=== PATIENT | male | born 2000 | race Caucasian/White ===

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

== ENCOUNTER 2021-10-06 15:29 | Emergency (ER) | payer OTHER ==
[2021-10-06 15:48] VITALS: BP 157/97; PULSE 83; RESP 19; TEMP 98.1
--- NOTE | 2021-10-06 17:25 | ED ---
General Adult HPI - General Chief complaint: Urogenital Stated complaint: groin pain Time Seen by Provider: 10/06/21 17:15 Source: patient, RN notes reviewed Mode of arrival: ambulatory Limitations: no limitations - History of Present Illness Initial comments: Patient is a pleasant 21-year-old male presenting to the emergency Department with complaints of left testicle pain. Onset of symptoms was around 1 week ago. Discomfort was somewhat severe the first couple of days and has lessened since that time. Discomfort is only moderate at this time rated 5/10. Discomfort is left testicle. Patient has not noticed any swelling. No redness. No dysuria or hematuria. No abdominal discomfort. No history of similar symptoms previously. Symptoms did start after moving furniture. - Related Data Home Medications Medication Instructions Recorded Confirmed No Known Home Medications 10/06/21 10/06/21 Allergies Allergy/AdvReac Type Severity Reaction Status Date / Time No Known Allergies Allergy Verified 12/26/18 22:52 Review of Systems ROS Statement: Those systems with pertinent positive or pertinent negative responses have been documented in the HPI. ROS Other: All systems not noted in ROS Statement are negative. Constitutional: Denies: fever Eyes: Denies: eye pain ENT: Denies: ear pain Respiratory: Denies: cough Cardiovascular: Denies: chest pain Endocrine: Denies: fatigue Gastrointestinal: Denies: abdominal pain Genitourinary: Reports: as per HPI, testicular pain. Denies: dysuria, hematuria, discharge, testicular mass Musculoskeletal: Denies: back pain Skin: Denies: rash Neurological: Denies: weakness Past Medical History Past Medical History: GERD/Reflux Additional Past Medical History / Comment(s): N/V daily since December,. pain, gas, bloating,steroids within 3 mos History of Any Multi-Drug Resistant Organisms: MRSA Date of last positivie culture/infection: 1998 MDRO Source:: arm Past Surgical History: Adenoidectomy, Tonsillectomy Additional Past Surgical History / Comment(s): circumcision repeated @age of 4,mole removed from scalp Past Anesthesia/Blood Transfusion Reactions: Postoperative Nausea & Vomiting (PONV) Past Psychological History: Anxiety Smoking Status: Never smoker Past Alcohol Use History: None Reported Past Drug Use History: None Reported - Past Family History Mother Family Medical History: No Reported History Father Family Medical History: No Reported History General Exam Limitations: no limitations General appearance: alert, in no apparent distress Head exam: Present: normocephalic Eye exam: Present: normal appearance Neck exam: Present: normal inspection Respiratory exam: Present: normal lung sounds bilaterally Cardiovascular Exam: Present: regular rate, normal rhythm GI/Abdominal exam: Present: soft, normal bowel sounds. Absent: distended, tenderness, guarding, rebound, rigid, pulsatile mass exam: Present: testicular tenderness (Mild in the area of the epididymis). Absent: scrotal swelling Extremities exam: Present: normal inspection Back exam: Present: normal inspection. Absent: tenderness Neurological exam: Present: alert Psychiatric exam: Present: normal affect, normal mood Skin exam: Present: normal color Course Vital Signs 10/06/21 15:45 Temperature 98.1 F Pulse Rate 83 Respiratory 19 Rate Blood Pressure 157/97 O2 Sat by Pulse 98 Oximetry Medical Decision Making - Medical Decision Making Patient reevaluated and resting comfortably in bed. Patient and family updated on results and need for follow-up. - Radiology Data Radiology results: report reviewed (Small bilateral hydroceles. No torsion.) Disposition Clinical Impression: Hydrocele, Testicle pain Disposition: HOME SELF-CARE Condition: Stable Instructions (If sedation given, give patient instructions): Hydrocele (ED), Testicle Pain (ED) Additional Instructions: Please follow-up with primary care physician and urology, number given, in the next day or 2 for recheck. Return for fever and more redness, swelling, worsening or changing symptoms or other concerns. Is patient prescribed a controlled substance at d/c from ED?: No Referrals: Montana Hood MD [Primary Care Provider] - 1-2 days Bashir Vasquez MD [STAFF PHYSICIAN] - 1-2 days Time of Disposition: 19:33
--- NOTE | 2021-10-06 18:35 | US ---
EXAMINATION TYPE: US scrotum with doppler. Grayscale and color Doppler Duplex imaging performed of rd bonilla scrotum. DATE OF EXAM: 10/06/2021 COMPARISON: CT CLINICAL HISTORY: L pain. Left testicular pain x 1 week. EXAM MEASUREMENTS: TESTICLES: Right Testicle: 4.8 x 2.6 x 2.2 cm Left Testicle: 4.5 x 2.9 x 2.2 cm EPIDIDYMIS HEAD: Right Epididymis: 1.0 x 0.9 x 1.1 cm Left Epididymis: 1.1 x 1.4 x 1.3 cm Doppler performed to assess for testicular vascularity; bilateral color flow and waveforms are seen. Presence of hydroceles: Right: 0.9 x 2.1 x 1.5 cm. Left: 0.6 x 1.0 x 1.5 cm. Presence of varicoceles: Not seen. IMPRESSION: Small bilateral hydroceles. No testicular torsion or mass.
[2021-10-06] MEDS ORDERED: ACET/COD 300 MG/30 MG STARTER PACK 6 TAB BTL PO STA (19:31)
== END 2021-10-06 19:47 | disposition home or self-care (01) ==
LOC: EC 15:29
DX: N43.3 Hydrocele, unspecified (principal)
CPT/HCPCS: 76870; 93975; 99284

== ENCOUNTER → 2021-10-06 | Outpatient (CLI) | payer OTHER ==
--- NOTE | 2021-10-07 09:21 | USB ---
Reason for exam: clinical finding. Physical Findings: Nurse Summary: red excoriation under bilateral breasts (nurse dw). US Breast Limited BILAT Right limited breast ultrasound including focal area of concern, retroareolar and axilla demonstrates no cystic or solid lesion seen. Left limited breast ultrasound including focal area of concern, retroareolar and axilla demonstrates no cystic or solid lesion seen. These results were verbally communicated with the patient and result sheet given to the patient on 10/06/21. ASSESSMENT: Negative, BI-RAD 1 RECOMMENDATION: Clinical management of both breasts. Manage patient on a clinical basis.
== END | disposition home or self-care (01) ==
LOC: RADUSWWP 14:47
PROVIDERS: ATTEND Family Medicine
DX: R92.8 Other abnormal and inconclusive findings on diagnostic imaging of breast (principal)

== ENCOUNTER 2023-10-23 04:29 | Emergency (ER) | payer OTHER ==
[2023-10-23 04:46] VITALS: TEMP 97.8
--- NOTE | 2023-10-23 04:46 | ED ---
Male Urogenital HPI - General Chief complaint: Urogenital Stated complaint: Uti, Back Pain Time Seen by Provider: 10/23/23 04:45 Source: patient Mode of arrival: ambulatory Limitations: no limitations - History of Present Illness Initial comments: 23yo M since ER today for evaluation of right-sided flank pain and multi-to urinating. Patient reports that at some flank pain earlier in the week and then had some during the night. He took some ibuprofen in the flank pain seemed to get better. However patient and felt the urge to urinate and could not urinate, but the sensation lasted about an hour. Upon arrival to the emergency department he was able urinate is feeling much better. No further flank pain no nausea or vomiting. No gross hematuria though he did feel that his urine looked darker than usual. No concern for sexually transmitted infections. - Related Data Home Medications Medication Instructions Recorded Confirmed No Known Home Medications 10/06/21 10/06/21 Allergies Allergy/AdvReac Type Severity Reaction Status Date / Time No Known Allergies Allergy Verified 10/23/23 04:36 Review of Systems ROS Statement: Those systems with pertinent positive or pertinent negative responses have been documented in the HPI. ROS Other: All systems not noted in ROS Statement are negative. Past Medical History Past Medical History: GERD/Reflux Additional Past Medical History / Comment(s): N/V daily since December,. pain, gas, bloating,steroids within 3 mos History of Any Multi-Drug Resistant Organisms: MRSA Date of last positivie culture/infection: 1998 MDRO Source:: arm Past Surgical History: Adenoidectomy, Tonsillectomy Additional Past Surgical History / Comment(s): circumcision repeated @age of 4,mole removed from scalp Past Anesthesia/Blood Transfusion Reactions: Postoperative Nausea & Vomiting (PONV) Past Psychological History: Anxiety Smoking Status: Never smoker Past Alcohol Use History: Occasional Past Drug Use History: None Reported - Past Family History Mother Family Medical History: No Reported History Father Family Medical History: No Reported History General Exam Limitations: no limitations Head exam: Present: atraumatic, normocephalic Eye exam: Present: normal appearance ENT exam: Present: normal exam Respiratory exam: Present: normal lung sounds bilaterally GI/Abdominal exam: Present: soft. Absent: distended Rectal exam: Present: deferred Extremities exam: Present: full ROM Back exam: Absent: CVA tenderness (R), CVA tenderness (L) Neurological exam: Present: alert, oriented X3 Psychiatric exam: Present: normal affect, normal mood Course Vital Signs 10/23/23 10/23/23 04:36 06:10 Temperature 97.8 F Pulse Rate 87 78 Respiratory 18 16 Rate Blood Pressure 142/83 141/75 O2 Sat by Pulse 99 99 Oximetry Medical Decision Making - Medical Decision Making Was pt. sent in by a medical professional or institution (LISA Cunningham, [employer], urgent care, hospital, or custodial...) When possible be specific @ -No Did you speak to anyone other than the patient for history (EMS, parent, family, police, friend...)? What history was obtained from this source @ -No Did you review nursing and triage notes (agree or disagree)? Why? @ -I reviewed and agree with nursing and triage notes Were old charts reviewed (outside hosp., previous admission, EMS record, old EKG, old radiological studies, urgent care reports/EKG's, custodial records)? Report findings @ -No old charts were reviewed Differential Diagnosis (chest pain, altered mental status, abdominal pain women, abdominal pain men, vaginal bleeding, weakness, fever, dyspnea, syncope, headache, dizziness, GI bleed, back pain, seizure, CVA, palpatations, mental health)? @ -not applicable EKG interpreted by me (3pts min.). @ -As above X-rays interpreted by me (1pt min.). @ -None done CT interpreted by me (1pt min.). @ -None done U/S interpreted by me (1pt. min.). @ -None done What testing was considered but not performed or refused? (CT, X-rays, U/S, labs)? Why? @ Ultrasound or CT imaging, declined by the patient as he was asymptomatic and eager for discharge home to sleep. What meds were considered but not given or refused? Why? @ -None Did you discuss the management of the patient with other professionals (professionals i.e. LISA Cunningham, [employer], lab, RT, psych nurse, social welfare administrator, rn spine, teacher, delinquency prevention officer, family service caseworker)? Give summary @ -No Was smoking cessation discussed for >3mins.? @ -No Was critical care preformed (if so, how long)? @ -No Were there social determinants of health that impacted care today? How? (Homelessness, low income, unemployed, alcoholism, drug addiction, transportation, low edu. Level, literacy, decrease access to med. care, senior care, rehab)? @ -No Was there de-escalation of care discussed even if they declined (Discuss DNR or withdrawal of care, Hospice)? DNR status @ -No What co-morbidities impacted this encounter? (DM, HTN, Smoking, COPD, CAD, Cancer, CVA, ARF, Chemo, Hep., AIDS, mental health diagnosis, sleep apnea, morbid obesity)? @ -None Was patient admitted / discharged? Hospital course, mention meds given and route, prescriptions, significant lab abnormalities, going to OR and other p ertinent info. @ -Discharged The patient was seen and evaluated, history is obtained from patient. Urinalysis shows gross hematuria without signs of infection. Given the patient 's colicky like flank pain that has now resolved I discussed with him the likelihood that he is passing or has passed a kidney stone. I did offer CT imaging to assess size and location of stones however given that the patient was asymptomatic he felt reassured that he did not have an infection and was comfortable with plan for discharge home with expectant management. Close return parameters were discussed with patient was discharged home in stable condition. Undiagnosed new problem with uncertain prognosis? @ -No Drug Therapy requiring intensive monitoring for toxicity (Heparin, Nitro, Insulin, Cardizem)? @ -No Were any procedures done? @ -No Diagnosis/symptom? @ -Renal colic and hematuria Acute, or Chronic, or Acute on Chronic? @ -Acute Uncomplicated (without systemic symptoms) or Complicated (systemic symptoms)? @ -default Side effects of treatment? @ -No Exacerbation, Progression, or Severe Exacerbation? @ -No Poses a threat to life or bodily function? How? (Chest pain, [place], [place], pneumonia, PE, COPD, DKA, ARF, appy, cholecystitis, CVA, Diverticulitis, Homicidal, Suicidal, threat to staff... and all critical care pts) @ -No - Lab Data Lab Results 10/23/23 Range/Units 04:49 Urine Color Yellow Urine Appearance Clear (Clear) Urine pH 6.0 (5.0-8.0) Ur Specific [place] 1.025 (1.001-1.035) Urine Protein Trace H (Negative) Urine Glucose (UA) Negative (Negative) Urine Ketones Negative (Negative) Urine Blood Large H (Negative) Urine Nitrite Negative (Negative) Urine Bilirubin Negative (Negative) Urine Urobilinogen <2.0 (<2.0) mg/dL Ur Leukocyte Esterase Negative (Negative) Urine RBC >182 H (0-5) /hpf Urine WBC 1 (0-5) /hpf Hyaline Casts 3 H (0-2) /lpf Urine Mucus Many H (None) /hpf Disposition Clinical Impression: Renal colic on right side, Hematuria Disposition: HOME SELF-CARE Condition: Stable Instructions (If sedation given, give patient instructions): Kidney Stones (ED) Is patient prescribed a controlled substance at d/c from ED?: No Referrals: Montana Hood MD [Primary Care Provider] - 1-2 days
[2023-10-23 05:45] LABS: Appearance,Urine Clear (Clear); Bilirubin,Urine Negative (Negative); Blood,Urine Large (Negative); Color,Urine Yellow; Glucose,Urine (UA) Negative (Negative); Hyaline Casts,Urine 3 /lpf (0-2); Ketones,Urine Negative (Negative); Leukocyte Esterase,Urine Negative (Negative); Mucus,Urine Many /hpf; Nitrite,Urine Negative (Negative); Protein,Urine Trace (Negative); RBC,Urine >182 /hpf (0-5); Specific Gravity,Urine 1.025 (1.001-1.035); Urobilinogen,Urine <2.0 mg/dL (<2.0); WBC,Urine 1 /hpf (0-5)
[2023-10-23 06:12] VITALS: BP 141/75; PULSE 78; RESP 16
[2023-10-24 12:55] LABS: N. gonorrhoeae,PCR Negative (Negative)
== END 2023-10-23 06:11 | disposition home or self-care (01) ==
LOC: EC 04:29
DX: N23 Unspecified renal colic (principal); Z86.59 Personal history of other mental and behavioral disorders
CPT/HCPCS: 81001; 87591; 99283